=== PATIENT | female | born 1935 | race Caucasian/White ===

== ENCOUNTER 2019-10-26 17:21 | Emergency (ER) | payer MEDICARE, BC ==
--- NOTE | 2019-10-26 17:33 | EDM.PDOC ---
<Nelida Davies - Last Filed: 10/26/19 17:51> ED HPI GENERAL MEDICAL PROBLEM - General Chief Complaint: General Stated Complaint: MED VIA [facility] Time Seen by Provider: 10/26/19 17:32 Source of Information: Reports: Patient History Limitations: Reports: No Limitations - History of Present Illness INITIAL COMMENTS - FREE TEXT/NARRATIVE: pt arrived with a history of severe dementia. She was sitting at the table and her grand son was going to take her to the [place] and she passed out. This has not happened in the past. She does have a history of UTIs and kidney problems. When this happened she slumped over and was not responding briefly. She is at this time bck to herself. Onset: Today Duration: Hour(s): Location: Reports: Head, Other (pt passed out. She does not admit to any pain. ) Associated Symptoms: Reports: Syncope, Other (pt does have a history of a good fluid input. 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: Musculoskeletal History: Reports: Fracture, Other (See Below) Other Musculoskeletal History: broken jaw Neurological History: Reports: Alzheimers Disease Psychiatric History: Reports: Alzheimers Disease, Dementia Oncologic (Cancer) History: Reports: Other (See Below) Other Oncologic History: skin Dermatologic History: Reports: Other (See Below) Other Dermatologic History: skin cancer - Past Surgical History HEENT Surgical History: Reports: Cataract Surgery, Other (See Below) Social & Family History - Tobacco Use Smoking Status *Q: Never Smoker - Caffeine Use Caffeine Use: Reports: Coffee - Recreational Drug Use Recreational Drug Use: No ED ROS GENERAL - Review of Systems Review Of Systems: See Below Constitutional: Reports: Weakness, Other (pt has been eating and drinking well. ) HEENT: Reports: No Symptoms Respiratory: Reports: No Symptoms Cardiovascular: Reports: No Symptoms Endocrine: Reports: No Symptoms GI/Abdominal: Reports: No Symptoms : Reports: No Symptoms Musculoskeletal: Reports: No Symptoms Skin: Reports: No Symptoms Neurological: Reports: Syncope, Other (pt had a brief episode of syncope. ) Psychiatric: Reports: Other (pt has severe dementia. ) ED EXAM, GENERAL - Physical Exam Exam: See Below Free Text/Narrative:: pt arrived after having a brief episode of being unresponsive. She had just gotten out of the shower and was very upset about the bath. Exam Limited By: No Limitations General Appearance: Alert, Anxious, Other (pt appears as usual at this time. ) Ears: Normal TMs Nose: Normal Inspection Throat/Mouth: Normal Inspection Head: Atraumatic Neck: Normal Inspection Respiratory/Chest: No Respiratory Distress Cardiovascular: Regular Rate, Rhythm, Other ( bp is lower than usual. ) GI/Abdominal: Soft, Non-Tender (Female) Exam: Deferred Rectal (Female) Exam: Deferred Back Exam: Normal Inspection Extremities: Normal Inspection Neurological: Alert, Other (pt had an episode of syncope) Course - Vital Signs Last Recorded V/S: Last Vital Signs Temp 35.0 C L 10/26/19 17:31 Pulse 82 10/26/19 18:30 Resp 11 L 10/26/19 18:30 BP 112/60 10/26/19 18:30 Pulse Ox 98 10/26/19 17:31 - Orders/Labs/Meds Orders: Active Orders 24 hr Category Date Time Status CULTURE URINE [RM] Stat Lab 10/26/19 18:30 Ordered Ciprofloxacin in D5W [Cipro in D5W 400 MG/200 ML] 400 Med 10/26/19 18:30 Active mg Premix Bag 1 bag IV ONETIME Sodium Chloride 0.9% [Normal Saline] 1,000 ml Med 10/26/19 17:45 Active IV ASDIRECTED Medication Orders Sodium Chloride (Normal Saline) 1,000 mls @ 999 mls/hr IV ASDIRECTED NORA Last Admin: 10/26/19 17:52 Dose: 999 mls/hr Ciprofloxacin/Dextrose 400 mg/ (Premix) 200 mls @ 200 mls/hr IV ONETIME ONE Stop: 10/26/19 19:29 Last Admin: 10/26/19 18:35 Dose: 200 mls/hr Labs: Laboratory Tests 10/26/19 10/26/19 10/26/19 Range/Units 17:41 17:41 17:41 WBC 8.0 (4.5-11.0) K/uL RBC 4.06 (3.30-5.50) M/uL Hgb 13.0 (12.0-15.0) g/dL Hct 39.5 (36.0-48.0) % MCV 97 (80-98) fL MCH 32 H (27-31) pg MCHC 33 (32-36) % Plt Count 334 (150-400) K/uL Neut % (Auto) 78 H (36-66) % Lymph % (Auto) 11 L (24-44) % Cass % (Auto) 10 H (2-6) % Eos % (Auto) 1 L (2-4) % Baso % (Auto) 1 (0-1) % Sodium 144 (140-148) mmol/L Potassium 3.6 (3.6-5.2) mmol/L Chloride 106 (100-108) mmol/L Carbon Dioxide 31 (21-32) mmol/L Anion Gap 7.5 (5.0-14.0) mmol/L BUN 32 H (7-18) mg/dL Creatinine 1.2 H (0.6-1.0) mg/dL Est Cr Clr Drug Dosing 28.09 mL/min Estimated GFR (MDRD) 43 L (>60) Glucose 97 (74-106) mg/dL Lactic Acid 1.8 (0.4-2.0) mmol/L Calcium 8.3 L (8.5-10.1) mg/dL Total Bilirubin 1.0 (0.2-1.0) mg/dL AST 20 (15-37) U/L ALT 27 (12-78) U/L Alkaline Phosphatase 55 (46-116) U/L Total Protein 6.0 L (6.4-8.2) g/dL Albumin 3.2 L (3.4-5.0) g/dL Globulin 2.8 (2.3-3.5) g/dL Albumin/Globulin Ratio 1.1 L (1.2-2.2) Urine Color (YELLOW) Urine Appearance (CLEAR) Urine pH (5.0-8.0) Ur Specific [place] (1.008-1.030) Urine Protein (NEGATIVE) mg/dL Urine Glucose (UA) (NEGATIVE) mg/dL Urine Ketones (NEGATIVE) mg/dL Urine Occult Blood (NEGATIVE) Urine Nitrite (NEGATIVE) Urine Bilirubin (NEGATIVE) Urine Urobilinogen (0.2-1.0) EU/dL Ur Leukocyte Esterase (NEGATIVE) Urine RBC (0-5) Urine WBC (0-5) Ur Epithelial Cells Amorphous Sediment Urine Bacteria Urine Mucus 10/26/19 Range/Units 18:02 WBC (4.5-11.0) K/uL RBC (3.30-5.50) M/uL Hgb (12.0-15.0) g/dL Hct (36.0-48.0) % MCV (80-98) fL MCH (27-31) pg MCHC (32-36) % Plt Count (150-400) K/uL Neut % (Auto) (36-66) % Lymph % (Auto) (24-44) % Cass % (Auto) (2-6) % Eos % (Auto) (2-4) % Baso % (Auto) (0-1) % Sodium (140-148) mmol/L Potassium (3.6-5.2) mmol/L Chloride (100-108) mmol/L Carbon Dioxide (21-32) mmol/L Anion Gap (5.0-14.0) mmol/L BUN (7-18) mg/dL Creatinine (0.6-1.0) mg/dL Est Cr Clr Drug Dosing mL/min Estimated GFR (MDRD) (>60) Glucose (74-106) mg/dL Lactic Acid (0.4-2.0) mmol/L Calcium (8.5-10.1) mg/dL Total Bilirubin (0.2-1.0) mg/dL AST (15-37) U/L ALT (12-78) U/L Alkaline Phosphatase (46-116) U/L Total Protein (6.4-8.2) g/dL Albumin (3.4-5.0) g/dL Globulin (2.3-3.5) g/dL Albumin/Globulin Ratio (1.2-2.2) Urine Color Ector A (YELLOW) Urine Appearance Cloudy A (CLEAR) Urine pH 5.5 (5.0-8.0) Ur Specific [place] 1.020 (1.008-1.030) Urine Protein 30 H (NEGATIVE) mg/dL Urine Glucose (UA) Negative (NEGATIVE) mg/dL Urine Ketones Trace H (NEGATIVE) mg/dL Urine Occult Blood Trace-intact H (NEGATIVE) Urine Nitrite Positive H (NEGATIVE) Urine Bilirubin Small H (NEGATIVE) Urine Urobilinogen 1.0 (0.2-1.0) EU/dL Ur Leukocyte Esterase Moderate H (NEGATIVE) Urine RBC 5-10 H (0-5) Urine WBC Semi-packed H (0-5) Ur Epithelial Cells Not seen Amorphous Sediment Few Urine Bacteria Moderate Urine Mucus Rare Meds: Medications Generic Name Dose Route Start Last Admin Trade Name Freq PRN Reason Stop Dose Admin Sodium Chloride 1,000 mls @ 999 mls/hr 10/26/19 17:45 10/26/19 17:52 Normal Saline IV 999 mls/hr ASDIRECTED NORA Administration Ciprofloxacin/Dextrose 400 mg/ 200 mls @ 200 mls/hr 10/26/19 18:30 10/26/19 18:35 Premix IV 10/26/19 19:29 200 mls/hr ONETIME ONE Administration Departure - Departure Disposition: Home, Self-Care 01 Clinical Impression: Mild dehydration UTI (urinary tract infection) Qualifiers: Urinary tract infection type: acute cystitis Hematuria presence: without hematuria Qualified Code(s): N30.00 - Acute cystitis without hematuria Syncope Qualifiers: Syncope type: unspecified Qualified Code(s): R55 - Syncope and collapse - Discharge Information Prescriptions: Ciprofloxacin [Ciprofloxacin HCl] 250 mg PO Q12H #13 tablet Instructions: Urinary Tract Infection, Adult, [id number] Referrals: PCP,None [Primary Care Provider] - Forms: ED Department Discharge Additional Instructions: Give Ciprofloxacin 200 mg every 12 hrs starting when pharmacies open tomorrow. F /U with Julissa's provider on Thursday afternoon to review her urine culture result. Encourage fluids. Recheck sooner if worse. Sepsis Event Note - Focused Exam Vital Signs: Vital Signs Temp Pulse Resp BP Pulse Ox 10/26/19 18:30 82 11 L 112/60 10/26/19 17:31 35.0 C L 78 16 101/46 L 98 10/26/19 17:26 35.0 C L 78 16 101/46 L 98 Date Exam was Performed: 10/26/19 Time Exam was Performed: 17:51 - My Orders Last 24 Hours: My Active Orders 10/26/19 18:30 CULTURE URINE [RM] Stat Ciprofloxacin in D5W [Cipro in D5W 400 MG/200 ML] 400 mg Premix Bag 1 bag IV ONETIME - Assessment/Plan Last 24 Hours: My Active Orders 10/26/19 18:30 CULTURE URINE [RM] Stat Ciprofloxacin in D5W [Cipro in D5W 400 MG/200 ML] 400 mg Premix Bag 1 bag IV ONETIME <Ishmael Lua G - Last Filed: 10/26/19 18:39> Departure - Departure Time of Disposition: 19:45 Condition: Fair - Discharge Information *PRESCRIPTION DRUG MONITORING PROGRAM REVIEWED*: Not Applicable *COPY OF PRESCRIPTION DRUG MONITORING REPORT IN PATIENT MARY: Not Applicable Sepsis Event Note - Focused Exam Date Exam was Performed: 10/26/19 Time Exam was Performed: 18:39
[2019-10-26] MEDS: Sodium Chloride 0.9% 1,000 ML IV SCH (17:52)
[2019-10-26] MEDS: Ciprofloxacin in D5W 400 MG in Premix Bag 1 BAG IV ONE ×2 (18:35)
[2019-10-26 19:34] VITALS: BP 137/60; PULSE 89
== END 2019-10-26 19:56 | disposition home or self-care (01) ==
LOC: JP.ED 17:21
DX: N30.00 Acute cystitis without hematuria (principal); E86.0 Dehydration; Z88.1 Allergy status to other antibiotic agents
CPT/HCPCS: 36415; 80053; 81001; 83605; 85025; 87086; 87088; 87186; 96361; 96365; 99283; 99284; J0744; J7030

== ENCOUNTER 2019-11-07 08:11 | Emergency (ER) | payer MEDICARE, BC ==
--- NOTE | 2019-11-07 08:22 | EDM.PDOC ---
ED HPI GENERAL MEDICAL PROBLEM - General Chief Complaint: General Stated Complaint: FORGETTING TO TAKE HER MEDS Time Seen by Provider: 11/07/19 08:11 Source of Information: Reports: EMS History Limitations: Reports: Physical Impairment - History of Present Illness INITIAL COMMENTS - FREE TEXT/NARRATIVE: 84-year-old female who was attempting to still live independently but her worsening dementia is making that impossible. For the last 2 days she has not taken any of her medications and is not eating well. The family called the ambulance this morning, saying that she "needs to be admitted then put in a skilled nursing". The patient herself does not want to be here, she denies any pain or discomfort, she is mildly agitated and angry. She is not however physically aggressive. Onset: Unknown/Unsure Associated Symptoms: Denies: Chest Pain, Cough, Malaise - Related Data Allergies Allergy/AdvReac Type Severity Reaction Status Date / Time Cephalosporins Allergy Anaphylactic Verified 10/26/19 17:26 Shock Home Meds: Home Meds Melatonin 10 mg PO BEDTIME PRN 10/26/19 [History] Multivitamin [Multi-Vitamin Daily] 1 tab PO DAILY 11/07/19 [History] Past Medical History HEENT History: Reports: Cataract Respiratory History: Reports: Other (See Below) Other Respiratory History: hx of pneumonia Genitourinary History: Reports: Other (See Below) Other Genitourinary History: one kidney smaller than the other 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: Musculoskeletal History: Reports: Fracture, Other (See Below) Other Musculoskeletal History: broken jaw Neurological History: Reports: Alzheimers Disease Psychiatric History: Reports: Alzheimers Disease, Dementia Oncologic (Cancer) History: Reports: Other (See Below) Other Oncologic History: skin Dermatologic History: Reports: Other (See Below) Other Dermatologic History: skin cancer - Past Surgical History HEENT Surgical History: Reports: Cataract Surgery, Other (See Below) Social & Family History - Caffeine Use Caffeine Use: Reports: Coffee ED ROS GENERAL - Review of Systems Review Of Systems: See Below Constitutional: Denies: Fever, Chills, Malaise Respiratory: Denies: Shortness of Breath Cardiovascular: Denies: Chest Pain GI/Abdominal: Reports: Abdominal Pain (According to her daughter she has been complaining of some intermittent abdominal discomfort) : Reports: Other (Recent treatment for UTI) Neurological: Reports: Confusion Psychiatric: Reports: Agitation, Anxiety ED EXAM, GENERAL - Physical Exam Exam: See Below Exam Limited By: No Limitations General Appearance: Alert, No Apparent Distress Eye Exam: Bilateral Eye: EOMI (No jaundice) Head: Atraumatic Respiratory/Chest: No Respiratory Distress, Lungs Clear Cardiovascular: Regular Rate, Rhythm GI/Abdominal: Other (Difficult to examine because any palpation causes her to get agitated although it does not seem to be tender, there is no guarding) Extremities: Other (She has a healing skin tear on her right elbow which is covered with Tegaderm) Neurological: Alert, No Motor/Sensory Deficits (Moving her extremities symmetrically with equal strength), Confused. No: Oriented Psychiatric: Anxious Skin Exam: Warm, Dry, Other (Patient has some slight bruising between the second third and fourth fingers on the left hand mostly on the dorsal aspect of the webspace, no other evidence of physical bruising on the extremities or breakdown of skin in the perineal or buttock area.) Course - Vital Signs Last Recorded V/S: Last Vital Signs Temp 93.9 F L 11/07/19 08:21 Pulse 69 11/07/19 08:21 Resp 16 11/07/19 08:21 BP 171/102 H 11/07/19 08:21 Pulse Ox 99 11/07/19 08:21 - Orders/Labs/Meds Labs: Laboratory Tests 11/07/19 11/07/19 11/07/19 Range/Units 08:21 08:32 08:32 WBC 6.4 (4.5-11.0) K/uL RBC 4.10 (3.30-5.50) M/uL Hgb 13.0 (12.0-15.0) g/dL Hct 39.6 (36.0-48.0) % MCV 97 (80-98) fL MCH 32 H (27-31) pg MCHC 33 (32-36) % Plt Count 329 (150-400) K/uL Neut % (Auto) 50 (36-66) % Lymph % (Auto) 35 (24-44) % [place] % (Auto) 12 H (2-6) % Eos % (Auto) 2 (2-4) % Baso % (Auto) 1 (0-1) % Sodium 143 (140-148) mmol/L Potassium 3.5 L (3.6-5.2) mmol/L Chloride 104 (100-108) mmol/L Carbon Dioxide 31 (21-32) mmol/L Anion Gap 11.5 (5.0-14.0) mmol/L BUN 19 H (7-18) mg/dL Creatinine 0.9 (0.6-1.0) mg/dL Est Cr Clr Drug Dosing 40.90 mL/min Estimated GFR (MDRD) 60 (>60) Glucose 73 L (74-106) mg/dL Calcium 8.2 L (8.5-10.1) mg/dL Total Bilirubin 0.6 (0.2-1.0) mg/dL AST 23 (15-37) U/L ALT 32 (12-78) U/L Alkaline Phosphatase 61 (46-116) U/L Total Protein 6.1 L (6.4-8.2) g/dL Albumin 3.3 L (3.4-5.0) g/dL Globulin 2.8 (2.3-3.5) g/dL Albumin/Globulin Ratio 1.2 (1.2-2.2) TSH, Ultra Sensitive 0.954 (0.358-3.740) uIU/mL Urine Color Yellow (YELLOW) Urine Appearance Clear (CLEAR) Urine pH 7.0 (5.0-8.0) Ur Specific [place] 1.015 (1.008-1.030) Urine Protein Negative (NEGATIVE) mg/dL Urine Glucose (UA) Negative (NEGATIVE) mg/dL Urine Ketones Negative (NEGATIVE) mg/dL Urine Occult Blood Negative (NEGATIVE) Urine Nitrite Negative (NEGATIVE) Urine Bilirubin Negative (NEGATIVE) Urine Urobilinogen 0.2 (0.2-1.0) EU/dL Ur Leukocyte Esterase Trace H (NEGATIVE) Urine RBC 0-5 (0-5) Urine WBC 0-5 (0-5) Ur Epithelial Cells Few Amorphous Sediment Not seen Urine Bacteria Rare Urine Mucus Not seen - Re-Assessments/Exams Free Text/Narrative Re-Assessment/Exam: 11/07/19 08:57 UA was repeated it looks clear but was sent to lab. CBC, CMP and TSH were obtained. I had a long discussion with her daughter who is her primary caregiver, a safety plan was made for the patient by social work assistant and she tried to abide by the safety plan but over the weekend she was simply unable to provide the care her mom needed. She is emotionally upset about having to make the decision to move her into assisted living or a nursing care center but she feels she has no choice at this point. She could not get her to take her medications consistently, and she cannot watch her 24 hours a day. 11/07/19 09:20 UA is now normal, chemistry profile, CBC and TSH are also reassuring and generally normal. Consultation with social work assistant and discharge planning will be obtained. 11/07/19 12:53 Arrangements were made for the patient to be admitted to [facility] memory care unit. She will continue her regular medications which are very few, with the addition of Ativan 0.5 mg up to every 3 hours for agitation. She needs no special diet. Departure - Departure Time of Disposition: 14:16 Disposition: DC/Tfer to Other 70 Clinical Impression: Alzheimer's dementia, late onset, with behavioral disturbance - Discharge Information Instructions: Dementia, [id number] Referrals: PCP,None [Primary Care Provider] - Forms: ED Department Discharge Care Plan Goals: Patient is to be transferred to the [facility], memory unit, and continued on her regular medications with the addition of as needed Ativan. Bisi Dangelo, her primary provider will arrange for ongoing care and medications in the future. Sepsis Event Note - Focused Exam Vital Signs: Vital Signs Temp Pulse Resp BP Pulse Ox 11/07/19 08:21 93.9 F L 69 16 171/102 H 99 Date Exam was Performed: 11/07/19 Time Exam was Performed: 16:29
[2019-11-07 08:23] VITALS: BP 171/102; PULSE 69
== END 2019-11-07 14:00 | disposition other institution (70) ==
LOC: JP.ED 08:11
DX: G30.9 Alzheimer's disease, unspecified (principal); F02.81 Dementia in other diseases classified elsewhere, unspecified severity, with behavioral disturbance; Z88.1 Allergy status to other antibiotic agents
CPT/HCPCS: 36415; 80053; 81001; 84443; 85025; 99283; 99285

== ENCOUNTER 2020-01-03 13:33 | Emergency (ER) | payer MEDICARE, BC, MEDICAID ==
--- NOTE | 2020-01-03 15:11 | EDM.PDOCBH ---
ED HPI GENERAL MEDICAL PROBLEM - General Chief Complaint: Behavioral/Psych Stated Complaint: MEDICAL FROM [facility] Time Seen by Provider: 01/03/20 14:40 Source of Information: Reports: Provider, RN History Limitations: Reports: Physical Impairment (Significant dementia, unable to cooperate), Uncooperative - History of Present Illness INITIAL COMMENTS - FREE TEXT/NARRATIVE: 84-year-old female with significant agitation, behavioral disorder who is been accepted at a behavioral health center but needed physical clearance. Her vitals are stable. She is very agitated and uncooperative. Not oriented to place or time. Onset: Unknown/Unsure - Related Data Allergies Allergy/AdvReac Type Severity Reaction Status Date / Time Cephalosporins Allergy Anaphylactic Verified 01/03/20 14:17 Shock Sulfa (Sulfonamide Allergy Cannot Verified 01/03/20 14:17 Antibiotics) Remember Home Meds: Home Meds Melatonin 10 mg PO BEDTIME PRN 10/26/19 [History] Multivitamin [Multi-Vitamin Daily] 1 tab PO DAILY 11/07/19 [History] ARIPiprazole [Aripiprazole] 5 mg PO DAILY 01/03/20 [History] Gabapentin [Neurontin] 100 mg PO BID 01/03/20 [History] OLANZapine [Olanzapine] 2.5 mg PO DAILY 01/03/20 [History] Past Medical History HEENT History: Reports: Cataract Respiratory History: Reports: Other (See Below) Other Respiratory History: hx of pneumonia Genitourinary History: Reports: Other (See Below) Other Genitourinary History: one kidney smaller than the other 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: Musculoskeletal History: Reports: Fracture, Other (See Below) Other Musculoskeletal History: broken jaw Neurological History: Reports: Alzheimers Disease Psychiatric History: Reports: Alzheimers Disease, Dementia Oncologic (Cancer) History: Reports: Other (See Below) Other Oncologic History: skin Dermatologic History: Reports: Other (See Below) Other Dermatologic History: skin cancer - Infectious Disease History Infectious Disease History: Reports: Chicken Pox, Measles, Mumps - Past Surgical History HEENT Surgical History: Reports: Cataract Surgery, Other (See Below) Social & Family History - Tobacco Use Smoking Status *Q: Never Smoker - Caffeine Use Caffeine Use: Reports: None - Recreational Drug Use Recreational Drug Use: No ED ROS GENERAL - Review of Systems Review Of Systems: See Below Reason Not Obtained: Review of systems obtained from nursing notes, uncooperative Constitutional: Denies: Fever, Chills Respiratory: Denies: Shortness of Breath Cardiovascular: Denies: Chest Pain GI/Abdominal: Denies: Nausea, Vomiting Neurological: Denies: Dizziness, Headache Psychiatric: Reports: Agitation, Anxiety ED EXAM, BEHAVIORAL HEALTH - Physical Exam Exam: See Below Exam Limited By: Uncooperative General Appearance: Alert, No Apparent Distress Eye Exam: Bilateral Eye: Normal Inspection Head: Atraumatic Neck: Supple, Non-Tender Respiratory/Chest: Lungs Clear Cardiovascular: Regular Rate, Rhythm GI/Abdominal: Non-Tender Extremities: No: Pedal Edema Neurological: Alert. No: Oriented x 3 (Likely disoriented to place and time) Psychiatric: Restless, Agitated COURSE, BEHAVIORAL HEALTH COMP - Course Vital Signs: Last Vital Signs Temp 98.3 F 01/03/20 17:13 Pulse 87 01/03/20 17:13 Resp 20 01/03/20 17:13 BP 157/80 H 01/03/20 17:13 Pulse Ox 98 01/03/20 17:13 Orders, Labs, Meds: Laboratory Tests 01/03/20 01/03/20 Range/Units 14:19 14:52 WBC 8.7 (4.5-11.0) K/uL RBC 4.07 (3.30-5.50) M/uL Hgb 13.2 (12.0-15.0) g/dL Hct 41.0 (36.0-48.0) % MCV 101 H (80-98) fL MCH 32 H (27-31) pg MCHC 32 (32-36) % Plt Count 320 (150-400) K/uL Neut % (Auto) 60 (36-66) % Lymph % (Auto) 22 L (24-44) % [place] % (Auto) 16 H (2-6) % Eos % (Auto) 2 (2-4) % Baso % (Auto) 1 (0-1) % Sodium 148 (140-148) mmol/L Potassium 4.5 (3.6-5.2) mmol/L Chloride 109 H (100-108) mmol/L Carbon Dioxide 32 (21-32) mmol/L Anion Gap 11.5 (5.0-14.0) mmol/L BUN 23 H (7-18) mg/dL Creatinine 1.1 H (0.6-1.0) mg/dL Est Cr Clr Drug Dosing TNP Estimated GFR (MDRD) 47 L (>60) Glucose 102 (74-106) mg/dL Calcium 8.3 L (8.5-10.1) mg/dL Total Bilirubin 0.6 (0.2-1.0) mg/dL AST 24 (15-37) U/L ALT 34 (12-78) U/L Alkaline Phosphatase 61 (46-116) U/L Total Protein 7.0 (6.4-8.2) g/dL Albumin 3.8 (3.4-5.0) g/dL Globulin 3.2 (2.3-3.5) g/dL Albumin/Globulin Ratio 1.2 (1.2-2.2) Re-Assessment/Re-Exam: CBC CMP and UA were ordered per the request of the accepting psychiatric facility. CBC and CMP were unremarkable, UA was very difficult to obtain as the patient would not cooperate and was incontinent. After talking to Dr. Talavera, psychiatric provider, she kindly accepted the patient without a UA. She will be transferred from by [facility]. Departure - Departure Time of Disposition: 17:40 Disposition: DC/Tfer to Psych Hosp/Unit 65 Clinical Impression: Dementia Qualifiers: Alzheimer's disease onset: late-onset Dementia behavioral disturbance: with behavioral disturbance - Discharge Information Referrals: PCP,None [Primary Care Provider] - Forms: ED Department Discharge
[2020-01-03 17:14] VITALS: BP 157/80; PULSE 87
== END 2020-01-03 17:40 ==
LOC: JP.ED 13:33
DX: G30.1 Alzheimer's disease with late onset (principal); F02.81 Dementia in other diseases classified elsewhere, unspecified severity, with behavioral disturbance; Z88.1 Allergy status to other antibiotic agents; Z88.2 Allergy status to sulfonamides
CPT/HCPCS: 36415; 80053; 85025; 99284; 99285